=== PATIENT | female | born 1985 | race Caucasian/White ===

== ENCOUNTER 2017-07-02 22:30 | Emergency (ER) | payer BC ==
[~2017-07-02] VITALS: Ht 175.3 cm; Wt 61.7 kg
[~2017-07-02 22:30] MED LIST: BCPILLS PO; PREN1TAB29
[2017-07-02 22:32] VITALS: TEMP 36.9; Ht 175.3 cm; Wt 61.7 kg
--- NOTE | 2017-07-02 23:33 | EMERGENCY ROOM VISIT NOTE ---
History Report prepared by Tamar: Andre Islas Under the Supervision of: Dr. Nahid Butler M.D. First contact with patient: 23:24 Chief Complaint: GROIN PAIN Stated Complaint: PAIN & BULDGE IN GROIN AREA History of Present Illness The patient is a 31 year old female who presents to the Emergency Room with complaints of right sided groin pain that began two days ago. She rates her current pain a 3/10 in severity. She notes her pain was a lot worse on Sunday than it is currently. She is currently constipated and is straining to have bowel movements. When she is successful, she describes it as small jessica. She notes that when she can have these small bowel movements, he pain improves. She notes that she has been having a lot of stress recently. She is also mildly swollen in that area. She denies any fevers, chills, nausea, vomiting, diarrhea , abnormal urinary symptoms, or leg swelling. She states she is not . Source of History: patient Onset: two days ago Position: other (right groin) Symptom Intensity: 3/10 Quality: ache Timing: constant Modifying Factors (Relieving): other (Bowel movement) Associated Symptoms: No fevers, No chills, No chest pain, No SOB, No nausea , No vomiting, No urinary symptoms Note: She is having some constipation. Review of Systems See HPI for pertinent positives & negatives. A total of 10 systems reviewed and were otherwise negative. Past Medical & Surgical Medical Problems: (1) Amniotic fluid leaking (2) Right Nephrolithiasis (3) Tachycardia/Palpitations (4) Uterine contractions at greater than 20 weeks of gestation Family History Patient reports no known family medical history. Social History Smoking Status: Never Smoker Smokeless Tobacco Use: No Drug Use: none Marital Status: Housing Status: lives with family Occupation Status: employed Current/Historical Medications No Active Prescriptions or Reported Meds Allergies Coded Allergies: Latex1 -Allergic Contact Dermititis (Verified Allergy, Intermediate, HIVES , 07/02/17) Nitrous Oxide (Verified Allergy, Intermediate, GI SYMPTOMS, 07/02/17) Physical Exam Vital Signs Date Time Temp Pulse Resp B/P (MAP) Pulse Ox O2 Delivery O2 Flow Rate FiO2 07/03/17 01:35 95 18 132/74 99 07/02/17 22:32 36.9 107 18 145/95 99 Room Air Physical Exam GENERAL: Patient is well appearing and in minimal acute distress. HEENT: No acute trauma, normocephalic atraumatic, mucous membranes moist, no nasal congestion, no scleral icterus. NECK: No stridor, no adenopathy, no meningismus, trachea is midline. LUNGS: No dyspnea. Clear to auscultation and equal bilaterally. No wheeze, no rhonchi. HEART: Regular rate and rhythm. No murmurs, rubs, gallops appreciated. ABDOMEN: Soft, nontender, bowel sounds positive, no masses appreciated, no peritonitis. BACK: No midline tenderness, no CVA tenderness EXTREMITIES: Swollen, mildly tender, firm, mildly mobile nodule in the right groin. NEUROLOGIC: Alert and oriented, no acute motor or sensory deficits, no focal weakness, cranial nerves grossly intact. SKIN: No rash, no jaundice, no diaphoresis. Medical Decision & Procedures ER Provider Diagnostic Interpretation: Radiology results and stated below per my review and radiologist interpretation: 1 VIEW KUB: Large amount of stool throughout colon. No obstruction. No free air appreciated. Per me. US OTHER - limited - right groin mass: 1.2 x 0.6 x 0.7 cm focus at the right groin most suggestive of lymph node with preserved appearing fatty hilum. Radiologist: Vik Gutiérrez M.D Laboratory Results Test 07/02/17 23:30 Urine Color YELLOW Urine Appearance CLEAR (CLEAR) Urine pH 7.5 (4.5-7.5) Urine Specific [place] 1.008 (1.000-1.030) Urine Protein NEG (NEG) Urine Glucose (UA) NEG (NEG) Urine Ketones NEG (NEG) Urine Occult Blood NEG (NEG) Urine Nitrite NEG (NEG) Urine Bilirubin NEG (NEG) Urine Urobilinogen NEG (NEG) Urine Leukocyte Esterase NEG (NEG) Urine WBC (Auto) 0 /hpf (0-5) Urine RBC (Auto) 0-4 /hpf (0-4) Urine Hyaline Casts (Auto) 0 /lpf (0-5) Urine Epithelial Cells (Auto) 5-10 /lpf (0-5) Urine Bacteria (Auto) NEG (NEG) Urine Test NEG (NEG) Laboratory results as reviewed by me. ED Course 2324: The patient was evaluated in room C7. A complete history and physical exam was performed. 0130: Reevaluated the patient. Discussed results and discharge instructions: She verbalized understanding and agreement. The patient is ready for discharge. Medical Decision Differential: Hernia, lymph node, lymphoma, constipation, bowel obstruction, or abscess. 31 yr old female with solitary lymph node right groin confirmed by US. No other evidence of nodes. No symptoms of lymphoma. Constipated, but post KUB she had large BM and feeling much better. Abdomen soft, non-tender without peritonitis. No evidence abscess, obstruction, nor other symptoms. Denies cuts , foot issues nor other clear cause of lymph node irritation. No UTI symptoms nor pelvic discomfort. Admits periodically gets inflamed nodes which go away after few day. Discussed RTED or PCP if multiple swollen nodes. Medication Reconcilliation Current Medication List: was personally reviewed by me Blood Pressure Screening Patient's blood pressure: Elevated blood pressure Blood pressure disposition: Elevated BP felt to be situational Impression Primary Impression: Constipation Additional Impression: Swollen lymph nodes Scribe Attestation The scribe's documentation has been prepared under my direction and personally reviewed by me in its entirety. I confirm that the note above accurately reflects all work, treatment, procedures, and medical decision making performed by me. Departure Information Dispostion Home / Self-Care Prescriptions No Active Prescriptions or Reported Meds Referrals No Doctor, Assigned (PCP) Forms HOME CARE DOCUMENTATION FORM, IMPORTANT VISIT INFORMATION, WORK / SCHOOL INSTRUCTIONS Patient Instructions Constipation, My [facility] Additional Instructions Return if fevers, worsening pain, increased swelling, or other concerns. Problem Qualifiers
[2017-07-03 00:03] LABS: URINE APPEARANCE CLEAR (CLEAR); URINE BILIRUBIN NEG (NEG); URINE COLOR YELLOW; URINE NITRITE NEG (NEG); URINE PH 7.5 (4.5-7.5); URINE SPECIFIC GRAVITY 1.008 (1.000-1.030); UROBILINOGEN NEG (NEG); ZZUR CULT IF INDIC CLEAN CATCH NO
[2017-07-03 00:04] LABS: MANUAL MICROSCOPIC REQUIRED? NO; REVIEW REQ? NO
[2017-07-03 01:35] VITALS: BP 132/74; PULSE 95; O2SAT 99
--- NOTE | 2017-07-03 07:09 | DIAGNOSTIC IMAGING REPORT ---
ULTRASOUND RIGHT GROIN NONVASCULAR CLINICAL HISTORY: Right groin mass. COMPARISON STUDY: KUB dated 07/02/2017. FINDINGS: Real-time, grayscale, and color flow sonography of the right groin is performed to assess a finding of palpable abnormality. There is a benign-appearing right inguinal lymph node seen at site of interest. This measures up to 6 mm in short axis and maintains a fatty hilum. No concerning mass lesion or fluid collection is identified. IMPRESSION: A benign-appearing right inguinal lymph node is identified at the site of interest. Clinical correlation and clinical follow-up will be required. Electronically signed by: Cm Mills M.D. 07/03/2017 7:07 AM Dictated Date/Time: 07/03/2017 7:06 AM
--- NOTE | 2017-07-03 07:13 | DIAGNOSTIC IMAGING REPORT ---
KUB CLINICAL HISTORY: 31 years-old Female presenting with constipation. TECHNIQUE: Single supine view of the abdomen was obtained. COMPARISON: 07/12/2011. FINDINGS: Previous seen noted calculus at the lower pole of the right kidney is not appreciated on the current radiograph. This may in part be due to degradation of evaluation of the kidneys secondary to moderate diffuse stool burden and bowel gas. No gross pneumoperitoneum. Osseous structures normal. IMPRESSION: 1. Moderate stool burden throughout the colon consistent with constipation. Electronically signed by: Noel Diaz M.D. 07/03/2017 7:11 AM Dictated Date/Time: 07/03/2017 7:10 AM
== END 2017-07-03 01:36 | disposition home or self-care (01) ==
LOC: C.EDB 22:31 → C.EDC 07-03 01:36
DX: K59.00 Constipation, unspecified (principal); R59.0 Localized enlarged lymph nodes; Z87.442 Personal history of urinary calculi

== ENCOUNTER → 2017-09-24 | Outpatient (CLI) | payer BC | END | disposition home or self-care (01) | LOC: C.PAPS 09:52 | PROVIDERS: ATTEND Physician Assistant | DX: Z01.419 Encounter for gynecological examination (general) (routine) without abnormal findings (principal); R87.610 Atypical squamous cells of undetermined significance on cytologic smear of cervix (ASC-US) ==

== ENCOUNTER 2017-10-24 06:56 | Emergency (ER) | payer BC ==
[~2017-10-24] VITALS: Ht 175.3 cm; Wt 58.2 kg
[2017-10-24 07:01] VITALS: TEMP 36.9; Ht 175.3 cm; Wt 58.2 kg
[2017-10-24] MEDS ORDERED: ONDANSETRON 8 MG/54 ML D5W IV STA (07:13)
[2017-10-24] MEDS ORDERED: SODIUM CHLORIDE 0.9% 1000ML 1,000 ML IV STA ×2 (07:13)
[2017-10-24] MEDS ORDERED: KETOROLAC TROMETHAMINE 30 MG/ML VIAL IV STA (07:13)
[2017-10-24 07:37] LABS: BASO % 0.1 %; BASO ABS # 0.01 K/uL (0-0.2); COMPLETE YES; EOS % 0.4 %; HEMATOCRIT 40.7 % (37-47); IG% 0.3 %; LYMPH % 2.6 %; MEAN CELL VOLUME 86.4 fL (80-100); MEAN CORPUSCULAR HEMOGLOBIN 29.7 pg (25-34); MEAN CORPUSCULAR HGB CONC 34.4 g/dl (32-36); MEAN PLATELET VOLUME 9.4 fL (7.4-10.4); MONO % 4.2 %; NEUT % 92.4 %; PLATELET COUNT 218 K/uL (130-400); RED BLOOD COUNT 4.71 M/uL (4.2-5.4); WHITE BLOOD COUNT 11.51 K/uL (4.8-10.8)
--- NOTE | 2017-10-24 07:48 | EMERGENCY ROOM VISIT NOTE ---
History Report prepared by Tamar: Aminata Tavares Under the Supervision of: Dr. Lakia Dominguez M.D. First contact with patient: 07:03 Chief Complaint: VOMITING Stated Complaint: VOMITING, DIARRHEA, FAST HEART RATE Nursing Triage Summary: n/v/d started about 230 this morning. feeling weak and tired now. History of Present Illness The patient is a 32 year old female who presents to the Emergency Room with complaints of persistent vomiting that began around 0200 this morning. She currently rates her discomfort as a 5/10 in severity. The patient states that she went to bed normal last night. The patient states that at 0200 this morning she woke with persistent nausea, vomiting, and diarrhea. She states that she is now feeling weak and fatigued. The patient states that she is now developing a headache. She reports generalized abdominal discomfort. The patient denies any hematochezia or hematemesis. She states that her last menstrual cycle was three weeks ago. The patient reports a history of a tubal ligation. She denies being a smoker. The patient states that she has no active medical problems. She additionally reports a sore throat from her persistent vomiting. Source of History: patient Onset: 0230 this morning Position: other (global) Symptom Intensity: 5/10 Quality: other (vomiting) Timing: other (persistent) Associated Symptoms: + headache, + sorethroat, + nausea, + diarrhea, + fatigue, + weakness, No hematochezia Review of Systems See HPI for pertinent positives & negatives. A total of 10 systems reviewed and were otherwise negative. Past Medical & Surgical Medical Problems: (1) Amniotic fluid leaking (2) Right Nephrolithiasis (3) Tachycardia/Palpitations (4) Uterine contractions at greater than 20 weeks of gestation Family History Diabetes mellitus Gallbladder disease Heart disease Social History Smoking Status: Never Smoker Smokeless Tobacco Use: No Alcohol Use: occasionally Drug Use: none Marital Status: Housing Status: lives with family Occupation Status: employed Current/Historical Medications Scheduled Ondasetron Odt (Zofran Odt), 4 MG SL Q6H Allergies Coded Allergies: Latex1 -Allergic Contact Dermititis (Verified Allergy, Intermediate, HIVES , 07/02/17) Nitrous Oxide (Verified Allergy, Intermediate, GI SYMPTOMS, 07/02/17) Physical Exam Vital Signs Date Time Temp Pulse Resp B/P (MAP) Pulse Ox O2 Delivery O2 Flow Rate FiO2 10/24/17 10:12 101 18 135/81 98 10/24/17 09:25 100 18 110/65 96 Room Air 10/24/17 08:32 100 119/75 99 Room Air 10/24/17 07:37 102 10/24/17 07:36 101 20 135/88 100 Room Air 10/24/17 07:01 36.9 117 18 122/84 98 Room Air Physical Exam Vital signs reviewed. General: Well-appearing female, in some discomfort, tearful. HEENT: No scleral icterus, PERRLA, neck supple. Atraumatic. Cardiovascular: Regular rate and rhythm, no extra sounds. Pulmonary: Clear to auscultation bilaterally, normal work of breathing. Abdomen: Soft, nontender, nondistended, positive bowel sounds. Musculoskeletal: Atraumatic, no peripheral edema. No CVA tenderness. Neurologic: Patient awake alert and oriented x 3 Skin: Warm, dry, no rash Medical Decision & Procedures ER Provider Diagnostic Interpretation: X-ray results as stated below per interpretation by me and the radiologist: CHEST AND ABDOMEN 2 VIEWS HISTORY: vomiting, diarrhea COMPARISON: KUB 07/02/2017. FINDINGS: The lungs are clear. The cardiomediastinal silhouette is within normal limits. There is no pneumoperitoneum or pneumatosis. The bowel gas pattern is unremarkable. No evidence for bowel obstruction. No renal or ureteral calculi. The spleen appears be mild enlarged measuring 13.6 cm in length. IMPRESSION: No acute cardiopulmonary process. No evidence for bowel obstruction. Probable mild splenomegaly. Electronically signed by: Haris Martino M.D. 10/24/2017 8:21 AM Dictated Date/Time: 10/24/2017 8:19 AM Laboratory Results 10/24/17 07:26 Red Blood Count 4.71, Mean Corpuscular Volume 86.4, Mean Corpuscular Hemoglobin 29.7, Mean Corpuscular Hemoglobin Concent 34.4, Mean Platelet Volume 9.4, Neutrophils (%) (Auto) 92.4, Lymphocytes (%) (Auto) 2.6, Monocytes (%) (Auto) 4.2, Eosinophils (%) (Auto) 0.4, Basophils (%) (Auto) 0.1, Neutrophils # (Auto) 10.64, Lymphocytes # (Auto) 0.30, Monocytes # (Auto) 0.48, Eosinophils # (Auto) 0.05, Basophils # (Auto) 0.01 10/24/17 07:26 Test 10/24/17 07:26 10/24/17 09:17 White Blood Count 11.51 K/uL (4.8-10.8) Red Blood Count 4.71 M/uL (4.2-5.4) Hemoglobin 14.0 g/dL (12.0-16.0) Hematocrit 40.7 % (37-47) Mean Corpuscular Volume 86.4 fL (80-100) Mean Corpuscular Hemoglobin 29.7 pg (25-34) Mean Corpuscular Hemoglobin Concent 34.4 g/dl (32-36) Platelet Count 218 K/uL (130-400) Mean Platelet Volume 9.4 fL (7.4-10.4) Neutrophils (%) (Auto) 92.4 % Lymphocytes (%) (Auto) 2.6 % Monocytes (%) (Auto) 4.2 % Eosinophils (%) (Auto) 0.4 % Basophils (%) (Auto) 0.1 % Neutrophils # (Auto) 10.64 K/uL (1.4-6.5) Lymphocytes # (Auto) 0.30 K/uL (1.2-3.4) Monocytes # (Auto) 0.48 K/uL (0.11-0.59) Eosinophils # (Auto) 0.05 K/uL (0-0.5) Basophils # (Auto) 0.01 K/uL (0-0.2) RDW Standard Deviation 39.7 fL (36.4-46.3) RDW Coefficient of Variation 12.5 % (11.5-14.5) Immature Granulocyte % (Auto) 0.3 % Immature Granulocyte # (Auto) 0.03 K/uL (0.00-0.02) Anion Gap 8.0 mmol/L (3-11) Est Creatinine Clear Calc Drug Dose 72.1 ml/min Estimated GFR () 84.1 Estimated GFR (Non- 72.6 BUN/Creatinine Ratio 12.1 (10-20) Calcium Level 8.9 mg/dl (8.5-10.1) Magnesium Level 2.0 mg/dl (1.8-2.4) Total Bilirubin 0.9 mg/dl (0.2-1) Direct Bilirubin 0.1 mg/dl (0-0.2) Aspartate Amino Transf (AST/SGOT) 9 U/L (15-37) Alanine Aminotransferase (ALT/SGPT) 13 U/L (12-78) Alkaline Phosphatase 54 U/L (45-117) Total Protein 8.3 gm/dl (6.4-8.2) Albumin 4.4 gm/dl (3.4-5.0) Lipase 109 U/L (73-393) Urine Color YELLOW Urine Appearance CLEAR (CLEAR) Urine pH 5.0 (4.5-7.5) Urine Specific [place] 1.022 (1.000-1.030) Urine Protein NEG (NEG) Urine Glucose (UA) NEG (NEG) Urine Ketones NEG (NEG) Urine Occult Blood NEG (NEG) Urine Nitrite NEG (NEG) Urine Bilirubin NEG (NEG) Urine Urobilinogen NEG (NEG) Urine Leukocyte Esterase TRACE (NEG) Urine WBC (Auto) 1-5 /hpf (0-5) Urine RBC (Auto) 5-10 /hpf (0-4) Urine Hyaline Casts (Auto) 1-5 /lpf (0-5) Urine Epithelial Cells (Auto) >30 /lpf (0-5) Urine Bacteria (Auto) NEG (NEG) Urine Test NEG (NEG) Laboratory results per my review. Medications Administered Medications (Trade) Dose Ordered Sig/Valente Route Start Time Stop Time Status Last Admin Dose Admin Sodium Chloride 1,000 ml @ 999 mls/hr Q1H1M STAT IV 10/24/17 07:13 10/24/17 08:13 DC 10/24/17 07:31 999 MLS/HR Sodium Chloride 1,000 ml @ 200 mls/hr Q5H STAT IV 10/24/17 07:13 10/24/17 10:41 DC 10/24/17 07:47 200 MLS/HR Ketorolac Tromethamine (Toradol Inj) 30 mg NOW STAT IV 10/24/17 07:13 10/24/17 07:17 DC 10/24/17 07:31 30 MG Ondansetron HCl 8 mg/Dextrose 54 ml @ 216 mls/hr 0800 ONCE IV 10/24/17 08:00 10/24/17 08:14 DC 12/13/17 07:47 216 MLS/HR ED Course 0719: Past medical records reviewed. The patient was evaluated in room A10. A complete history and physical examination was performed. 0713: Ordered Toradol Inj 30 mg IV, Zofran 8 mg IV, Sodium Chloride 1000 ml @ 200 mls/hr IV, Sodium Chloride 1000 ml @ 999 mls/hr IV. 0837: I reevaluated the patient and she is still tachycardic. 0945: The patient was reevaluated and she is feeling better. The test results were discussed with the patient and she verbalized complete understanding and agreement with the treatment plan. The patient is ready to go home. Medical Decision Differential diagnosis: Etiologies such as gastroenteritis, food borne illness, infections, appendicitis , diverticulitis, inflammatory bowel disease, obstruction, GI bleed, biliary pathology, as well as others were entertained. This pt was evaluated and appeared to be in no distress. IV access was obtained and lab work was drawn. Pt was hydrated with NSS, given IV zofran and toradol. Abd XR series is negative for FA or SBO. Pt was feeling much improved on reevaluation. Lab work is significant for a mild leukocytosis, likely stress mediated. Pt was d/c with a Rx for zofran ODT. Pt will return to the ED for worsening of symptoms or any medical concerns. Medication Reconcilliation Current Medication List: was personally reviewed by me Impression Primary Impression: Nausea vomiting and diarrhea Scribe Attestation The scribe's documentation has been prepared under my direction and personally reviewed by me in its entirety. I confirm that the note above accurately reflects all work, treatment, procedures, and medical decision making performed by me. Departure Information Dispostion Home / Self-Care Prescriptions Ondasetron Odt (ZOFRAN ODT) 4 Mg Tab 4 MG SL Q6H for Nausea, #10 TAB Prov: Lakia Dominguez M.D. 10/24/17 Referrals Shweta Sotelo D.O. (PCP) Forms HOME CARE DOCUMENTATION FORM, IMPORTANT VISIT INFORMATION Patient Instructions My [facility] Additional Instructions Diagnosis: Nausea, vomiting and diarrhea Please drink plenty of clear fluids. Zofran 4 mg ODT every 6 hours as needed for nausea. Tylenol 650 mg every 6 hours as needed for pain. Advance your diet slowly as tolerated. BRAT diet: Bananas, rice, applesauce and toast. Follow-up with your physician for continued symptoms or return to the ER for worsening of symptoms or any medical concerns.
[2017-10-24 07:54] LABS: BUN/CREATININE RATIO 12.1 (10-20); CALCIUM 8.9 mg/dl (8.5-10.1); CREATININE 1.01 mg/dl (0.60-1.20); POTASSIUM 3.8 mmol/L (3.5-5.1)
[2017-10-24] MEDS ORDERED: ONDANSETRON INJ 8 MG in DEXTROSE 5% 50ML 50 ML IV ONE (08:00)
--- NOTE | 2017-10-24 08:22 | DIAGNOSTIC IMAGING REPORT ---
CHEST AND ABDOMEN 2 VIEWS HISTORY: vomiting, diarrhea COMPARISON: KUB 07/02/2017. FINDINGS: The lungs are clear. The cardiomediastinal silhouette is within normal limits. There is no pneumoperitoneum or pneumatosis. The bowel gas pattern is unremarkable. No evidence for bowel obstruction. No renal or ureteral calculi. The spleen appears be mild enlarged measuring 13.6 cm in length. IMPRESSION: No acute cardiopulmonary process. No evidence for bowel obstruction. Probable mild splenomegaly. Electronically signed by: Haris Martino M.D. 10/24/2017 8:21 AM Dictated Date/Time: 10/24/2017 8:19 AM
[2017-10-24 09:36] LABS: MANUAL MICROSCOPIC REQUIRED? NO; REVIEW REQ? NO; URINE APPEARANCE CLEAR (CLEAR); URINE BILIRUBIN NEG (NEG); URINE COLOR YELLOW; URINE EPITHELIAL CELL AUTO >30 /lpf (0-5); URINE NITRITE NEG (NEG); URINE SPECIFIC GRAVITY 1.022 (1.000-1.030); UROBILINOGEN NEG (NEG); ZZUR CULT IF INDIC CLEAN CATCH NO
[2017-10-24] MEDS ORDERED: ONDA4TAB10 SL (09:51)
[2017-10-24 10:12] VITALS: BP 135/81; PULSE 101; O2SAT 98
== END 2017-10-24 10:14 | disposition home or self-care (01) ==
LOC: C.EDB 06:58 → C.EDA 10:14
DX: R11.2 Nausea with vomiting, unspecified (principal); R19.7 Diarrhea, unspecified; Z90.710 Acquired absence of both cervix and uterus; Z83.3 Family history of diabetes mellitus